=== PATIENT | female | born 1970 | race Hispanic/Latino ===

== ENCOUNTER 2018-01-29 11:08 | Emergency (ER) | payer OTHER ==
[~2018-01-29] VITALS: Ht 165.1 cm; Wt 101.6 kg
[~2018-01-29 11:08] MED LIST: ASPIRIN325 MG PO; DOXYCYCLINE HY100 MG PO; SPIRONOLACTONE25 MG PO
--- OUTSIDE RECORDS SUMMARY | 2018-01-29 11:11 | XMS REPORT ---
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 Active Not available ketoconazole 2 % topical cream Completed 11/30/2017 mupirocin 2 % topical ointment Completed 11/30/2017 naproxen 500 mg tablet Take 1 tablet every day by oral route. Completed 11/30/2017 spironolactone 100 mg tablet Completed 11/30/2017 terbinafine HCl 250 mg tablet Completed 11/30/2017 Problems Name Status Onset Date Source Transient Cerebral Ischemia Active 2007 Migraine Active 11/30/2017 Impaired Fasting Glycaemia Active 11/30/2017 Procedures Date Name Performed by 09/06/2011 Tubal Ligation Information not available Lab Results None recorded. Past Encounters 11/30/2017 Adult Health Examination; Body Mass Index 30+ - Obesity; Influenza Vaccination; Vaccination for Diphtheria, Pertussis, and Tetanus; Adjustment Disorder with Depressed Mood; Depression Screening Positive Charlotte Kearney MD: [id number] [facility], [address], [place] [address], Ph. [phone] Social History Smoking Status Never Smoker Vaccine List Vaccine Type Influenza, injectable, MDCK, quadrivalent 11/30/20170.5 mL Tdap 11/30/20170.5 mL Plan of Care Reminders Provider Appointments None recorded. Lab None recorded. Referral None recorded. Procedures None recorded. Surgeries None recorded. Imaging None recorded. Vitals Height Weight BMI Blood Pressure 5 ft 5 in 230.4 lbs 38.3 kg/m2 128/86 mm[Hg]
== END 2018-01-29 12:26 | disposition home or self-care (01) ==
LOC: FSED 11:08
DX: R05 Cough (principal); J20.9 Acute bronchitis, unspecified
CPT/HCPCS: 99283